=== PATIENT | male | born 1960 | race Caucasian/White ===

== ENCOUNTER 2021-10-23 08:55 | Emergency (ER) | payer OTHER ==
[~2021-10-23] VITALS: Ht 177.8 cm; Wt 77.1 kg
[2021-10-23 08:56] VITALS: BP 133/65
--- NOTE | 2021-10-23 08:56 | NUR ---
Pt JASON EDWARD, via gurney to bed 09.
[2021-10-23] MEDS ORDERED: NITR0.4T2 SL (09:01)
[2021-10-23] MEDS ORDERED: LISI-486 PO (09:01)
[2021-10-23] MEDS ORDERED: ASPI-1822 PO (09:01)
[2021-10-23] MEDS ORDERED: ATOR20TA PO (09:01)
--- NOTE | 2021-10-23 09:11 | NUR ---
61/M BIBA FROM HOME. PER EMS, CALLED 911 STATING PATIENT HAD A WITNESSED SYNCOPAL EPISODE THIS MORNING, STATING PATIENT HAS BEEN C/O DIZZINESS AND WEAKNESS SINCE. PATIENT REPORTS "I HAVE THE URGE TO USE THE RESTROOM" DENIES ANY EPISODES OF N/V/D, PATIENT STATING HE HAD A TEMP OF 100 THROUGHOUT THE NIGHT, DENIES TAKING MEDS FOR SYMPTOMS. PATIENT REPORTS FLYING BACK FROM [facility] 3 DAYS AGO, DENIES COUGH, SOB, CP, STATES NO ONE AT HOME HAS SIMILAR SYMPTOMS.
[2021-10-23 09:24] LABS: BASOPHILS % (AUTO) 0.4 % (0.0-2.0); EOSINOPHILS # (AUTO) 0.1 K/uL (0-0.4); EOSINOPHILS % (AUTO) 0.8 % (0.0-4.0); HEMATOCRIT 47.1 % (36-52); HEMOGLOBIN 16.1 g/dL (12.0-18.0); LYMPHOCYTES # (AUTO) 0.7 K/uL (2.0-11.5); LYMPHOCYTES % (AUTO) 10.3 % (20.5-51.1); MEAN CORPUSCULAR HEMOGLOBIN 30 pg (27-31); MEAN CORPUSCULAR HGB CONC 34 g/dL (33-37); MEAN CORPUSCULAR VOLUME 87.2 fL (80-94); MONOCYTES # (AUTO) 0.8 K/uL (0.8-1.0); MONOCYTES % (AUTO) 11.7 % (1.7-9.3); NEUTROPHILS # (AUTO) 5.5 K/uL (1.8-7.7); NEUTROPHILS % (AUTO) 76.8 % (42.2-75.2); PLATELET COUNT (AUTO) 148 K/uL (140-450); RED CELL DISTRIBUTION WIDTH 12.7 % (11.6-13.7); WHITE BLOOD COUNT (AUTO) 7.2 K/uL (4.8-10.8)
[2021-10-23 09:37] LABS: ALBUMIN 3.7 g/dL (3.4-5.0); ANION GAP 12.8 (8-16); CARBON DIOXIDE 25.6 mmol/L (21-32); POTASSIUM 3.4 mmol/L (3.5-5.1); TOTAL BILIRUBIN 0.8 mg/dL (0.0-1.0)
--- NOTE | 2021-10-23 09:55 | NUR ---
SHEREE SWAB COLLECTED AND WALKED TO LAB
[2021-10-23 11:10] VITALS: BP 114/69
--- NOTE | 2021-10-23 11:10 | NUR ---
Patient discharged with v/s stable. Written and verbal after care instructions ABOUT COVID 19 given and explained. Patient verbalized understanding. Ambulatory with steady gait. All questions addressed prior to discharge. Advised to follow up with PMD.
== END 2021-10-23 11:10 | disposition home or self-care (01) ==
LOC: MED 08:55
DX: U07.1 COVID-19 (principal); R55 Syncope and collapse; I10 Essential (primary) hypertension
CPT/HCPCS: 36415; 71045; 80053; 83880; 84484; 85025; 93005; 99285